=== PATIENT | female | born 1975 | race Caucasian/White ===

== ENCOUNTER → 2022-12-11 | Day surgery (SDC) | payer BC ==
[2022-12-09 13:32] LABS: ANION GAP 15.8 mmol/L (8-16); CALCIUM 9.1 mg/dL (8.4-10.2); CREATININE, SERUM 0.8 mg/dL (0.57-1.11); POTASSIUM 4.8 mmol/L (3.5-5.1)
[~2022-12-11] MED LIST: ACETAMINOPHEN 1000 MG/100 ML 0 ML IV ONE; ARMOUR THYROID60 MG PO; BUPIVACAINE HCL 0.5% 10ML MPF VIAL INJ ONE; CEFAZOLIN SODIUM 2 GM ONE; DEXAMETHASONE SOD PHOS INJ 4 MG/ML SDV ONE; FENTANYL CITRATE/PF 100MCG/2 ML INJ IV ONE; FENTANYL CITRATE/PF 100MCG/2 ML INJ ONE; KETOROLAC TROMETHAMINE 30 MG/ML VIAL ONE; LACTATED RINGER'S 1,000 ML ONE; LIDOCAINE HCL 2% LOCAL INJ 5 ML SDV VIAL INJ ONE; MIDAZOLAM HCL 2 MG/2 ML VIAL ONE; ONDANSETRON HCL INJ 2MG/ML 2ML 2 MG/ML VIAL ONE; POVIDONE IODINE 0.05% 0.05 % ML PO ONE; PROPOFOL IV EMULSION 10 MG/ML 20 ML VIAL ONE; SEASONIQUE 0.11 EACH PO; SEVOFLURANE INHAL SOLN 250 ML PEN BTL ONE; SPIRONOLACTONE25 MG PO; ZYRTEC-D TABLE1 EACH PO
[2022-12-11 14:47] VITALS: BP 125/74
== END | disposition home or self-care (01) ==
LOC: OR 11:25
PROVIDERS: ATTEND Podiatrist Foot & Ankle Surgery
DX: M20.11 Hallux valgus (acquired), right foot (principal); M21.961 Unspecified acquired deformity of right lower leg; M72.2 Plantar fascial fibromatosis; M77.31 Calcaneal spur, right foot; E05.90 Thyrotoxicosis, unspecified without thyrotoxic crisis or storm; Z01.812 Encounter for preprocedural laboratory examination; Z79.899 Other long term (current) drug therapy
CPT/HCPCS: 28119; 28296; 28308; 36415; 80048; 81025; C1713 ×2; J1100; J1885; J2001; J2250; J2405; J2704; J3010; J7121; 76000